=== PATIENT | male | born 1960 | race Caucasian/White ===

== ENCOUNTER → 2016-06-13 | Outpatient (CLI) | payer OTHER, MEDICAID | END | disposition home or self-care (01) | LOC: Rad HDHVI 13:53 | PROVIDERS: ATTEND Internal Medicine Cardiovascular Disease | DX: R00.2 Palpitations (principal); R42 Dizziness and giddiness; Z95.5 Presence of coronary angioplasty implant and graft | CPT/HCPCS: 93306 ==

== ENCOUNTER → 2022-06-27 | Outpatient (CLI) | payer OTHER | END | disposition home or self-care (01) | LOC: Rad HDHVI 15:04 | PROVIDERS: ATTEND Internal Medicine Cardiovascular Disease | DX: I08.1 Rheumatic disorders of both mitral and tricuspid valves (principal); I25.5 Ischemic cardiomyopathy; I10 Essential (primary) hypertension | CPT/HCPCS: 93306 ==

== ENCOUNTER → 2022-06-29 | Outpatient (CLI) | payer OTHER ==
[~2022-06-29] VITALS: Ht 163.8 cm; Wt 72.6 kg
[~2022-06-29] MED LIST: ADENOSINE 61 MG in GIVE UN-DILUTED 0 ML IV ONE; ADENOSINE 90 MG/30 ML INJ IV ONE
== END | disposition home or self-care (01) ==
LOC: Rad HDHVI 08:08
PROVIDERS: ATTEND Internal Medicine Cardiovascular Disease
DX: I25.10 Atherosclerotic heart disease of native coronary artery without angina pectoris (principal); I25.2 Old myocardial infarction; E11.40 Type 2 diabetes mellitus with diabetic neuropathy, unspecified; E11.65 Type 2 diabetes mellitus with hyperglycemia; I10 Essential (primary) hypertension; E78.5 Hyperlipidemia, unspecified; Z82.49 Family history of ischemic heart disease and other diseases of the circulatory system; Z95.1 Presence of aortocoronary bypass graft
CPT/HCPCS: 78452; 93005; 96374; 96375; A9500; J0153

== ENCOUNTER → 2023-01-14 | Outpatient (CLI) | payer OTHER | END | disposition home or self-care (01) | LOC: Rad HDHVI 11:03 | PROVIDERS: ATTEND Internal Medicine Cardiovascular Disease | DX: I07.1 Rheumatic tricuspid insufficiency (principal); I11.9 Hypertensive heart disease without heart failure | CPT/HCPCS: 93306 ==

== ENCOUNTER → 2023-10-02 | Outpatient (CLI) | payer OTHER | END | disposition home or self-care (01) | LOC: Rad HDHVI 13:54 | PROVIDERS: ATTEND Internal Medicine Cardiovascular Disease | DX: I08.1 Rheumatic disorders of both mitral and tricuspid valves (principal); R06.02 Shortness of breath; I10 Essential (primary) hypertension | CPT/HCPCS: 93306 ==

== ENCOUNTER → 2023-10-04 | Outpatient (CLI) | payer OTHER ==
[~2023-10-04] VITALS: Ht 162.6 cm; Wt 72.1 kg
== END | disposition home or self-care (01) ==
LOC: Rad HDHVI 09:05
PROVIDERS: ATTEND Internal Medicine Cardiovascular Disease
DX: I25.10 Atherosclerotic heart disease of native coronary artery without angina pectoris (principal); I25.2 Old myocardial infarction; I11.0 Hypertensive heart disease with heart failure; I50.43 Acute on chronic combined systolic (congestive) and diastolic (congestive) heart failure; E78.00 Pure hypercholesterolemia, unspecified; I25.5 Ischemic cardiomyopathy; Z95.1 Presence of aortocoronary bypass graft; Z82.49 Family history of ischemic heart disease and other diseases of the circulatory system
CPT/HCPCS: 78452; 93005; 96374; 96375; A9500; J0153

== ENCOUNTER → 2023-11-11 | Outpatient (CLI) | payer OTHER ==
[~2023-11-11] MED LIST changes: -ADENOSINE 61 MG in GIVE UN-DILUTED 0 ML IV ONE; -ADENOSINE 90 MG/30 ML INJ IV ONE; +ASPI1TAB20 PO; +ATOR-47 PO; +CHOL20007 PO; +COEN100C37 PO; +DAPA1TAB4 PO; +ERGO2000 PO; +FAMO-12 PO; +MAGN400T40 PO; +MEMA1CAP2 PO; +METO-158 PO; +METO25TA5 PO; +OXYB5TAB14 PO; +PANT40T PO
[2023-11-11 12:06] VITALS: BP 149/71; PULSE 60; RESP 16; O2SAT 96
[2023-11-11 12:17] VITALS: BP 134/89; PULSE 68; RESP 18; O2SAT 96
== END | disposition home or self-care (01) ==
LOC: Rad HDHVI 11:54
PROVIDERS: ATTEND Internal Medicine Cardiovascular Disease
DX: Z01.818 Encounter for other preprocedural examination (principal)
CPT/HCPCS: 71046; 93005; G0463

== ENCOUNTER → 2023-11-14 | Day surgery (SDC) | payer OTHER, MEDICAID ==
[2023-11-11 13:00] LABS: Basophils # (auto) 0 10 ^3/uL (0-0.2); Eosinophils # (auto) 0.1 10 ^3/uL (0-0.8); Neutrophils # (auto) 4.8 10 ^3/uL (1.6-8.6); Platelet Count (auto) 220 10^3/uL (140-450); Red Cell Distribution Width 15.1 % (11.8-14.3)
[2023-11-11 13:03] LABS: Basophils % (auto) 0.3 % (0.0-2.0); Hematocrit 44.5 % (41.0-53.0); Hemoglobin 14.8 g/dL (13.5-17.5); Lymphocytes # (auto) 1.5 10 ^3/uL (0.4-5.4); Lymphocytes % (auto) 21.5 % (10.0-50.0); Mean Corpuscular Hemoglobin 26.7 pg (28.0-32.0); Mean Corpuscular Hgb Conc. 33.2 g/dL (32.0-36.0); Mean Corpuscular Volume 80.2 fL (80.0-100.0); Monocytes # (auto) 0.5 10 ^3/uL (0-1.3); Neutrophils % (auto) 69.2 % (37.0-80.0); Red Blood Cells 5.55 10^6/uL (4.5-5.90); White Blood Cell 6.9 10^3/uL (4.4-10.8)
[2023-11-11 13:16] LABS: INR 0.98 (0.9-1.15); Partial Thromboplastin Time 24.7 SEC (24.5-34.5); Prothrombin Time 10.4 sec (9.3-11.8)
[2023-11-11 14:00] LABS: Anion Gap 4 (5-15); Carbon Dioxide 28 mmol/L (20-30); Chloride 107 mmol/L (98-107); Potassium 4.3 mmol/L (3.5-5.1); Sodium 139 mmol/L (136-145)
[2023-11-11 14:01] LABS: Calcium 9.5 mg/dL (8.7-10.4)
[2023-11-11 14:05] LABS: Glucose 131 mg/dL (74-106)
[2023-11-11 14:06] LABS: BUN/Creatinine Ratio 9.8 (10.0-20.0); Blood Urea Nitrogen 10 mg/dL (9-23)
[~2023-11-14] VITALS: Ht 162.6 cm; Wt 72.1 kg
[~2023-11-14] MED LIST changes: +ANGIOMAX 250 MG VIAL IV ONE; +CLOP75TA28 PO; +CLOPIDOGREL BISULFATE 75 MG TAB ONE; +HEPARIN IN NS 1000Units/500mL 1,500 ML ONE; +IOHEXOL 350 MG/ML 100ML IJ ONE; +LIDOCAINE 2%HCL (LOCAL ANESTH.) INJ 20ML MDV ONE; +MIDAZOLAM HCL 2MG/2ML 2ml VIAL (1mg/ml) ONE; +SODIUM CHL 0.9% 50 ML ONE; +fentaNYL CITRATE 100 MCG/2 ML VL ONE
== END | disposition home or self-care (01) ==
LOC: CATH 07:37
PROVIDERS: ATTEND Internal Medicine Cardiovascular Disease
DX: R06.02 Shortness of breath (principal); I25.810 Atherosclerosis of coronary artery bypass graft(s) without angina pectoris; I71.21 Aneurysm of the ascending aorta, without rupture; I10 Essential (primary) hypertension; Z95.1 Presence of aortocoronary bypass graft; Z79.82 Long term (current) use of aspirin; Z79.899 Other long term (current) drug therapy; Z79.01 Long term (current) use of anticoagulants
CPT/HCPCS: 36415; 80048; 85025; 85610; 85730; 92972; 93459; C1760; C1761; C1769; C1874; C1887; C1894; C9602; C9603; J0583; J1644; J2250; J3010; Q9967; 36221; 99152; 99153; C9600; C9601

== ENCOUNTER → 2023-12-13 | Outpatient (CLI) | payer OTHER ==
[~2023-12-13] MED LIST changes: -ANGIOMAX 250 MG VIAL IV ONE; -CLOPIDOGREL BISULFATE 75 MG TAB ONE; -HEPARIN IN NS 1000Units/500mL 1,500 ML ONE; -IOHEXOL 350 MG/ML 100ML IJ ONE; -LIDOCAINE 2%HCL (LOCAL ANESTH.) INJ 20ML MDV ONE; -MIDAZOLAM HCL 2MG/2ML 2ml VIAL (1mg/ml) ONE; -SODIUM CHL 0.9% 50 ML ONE; -fentaNYL CITRATE 100 MCG/2 ML VL ONE
== END | disposition home or self-care (01) ==
LOC: Rad HDHVI 15:51
PROVIDERS: ATTEND Internal Medicine Cardiovascular Disease
DX: I10 Essential (primary) hypertension (principal); I25.2 Old myocardial infarction
CPT/HCPCS: 93306

== ENCOUNTER 2024-08-19 11:40 | Outpatient (CLI) | payer OTHER, MEDICAID ==
[2024-08-19 11:58] VITALS: BP 137/82; PULSE 59; RESP 16; O2SAT 96
[2024-08-19] MEDS ORDERED: VERI2.5T PO (12:17)
[2024-08-19 12:19] VITALS: BP 122/69; PULSE 52; RESP 16; O2SAT 96
--- NOTE | 2024-08-19 13:07 | DVH ---
EXAM: XY CHEST TWO VIEWS ROUTINE CLINICAL HISTORY: Pain COMPARISON: XY CHEST TWO VIEWS ROUTINE on DOS: 11/11/23 TECHNIQUE: Frontal and lateral view of the chest was obtained FINDINGS: Lines and Tubes: None Lungs: No focal consolidation. Pleura: No effusion. No pneumothorax. Cardiomediastinal contours: Unremarkable Bones: No acute osseous abnormality. IMPRESSION: No acute cardiopulmonary disease.
[2024-08-19] MEDS ORDERED: DONE1TAB88 PO (13:20)
[2024-08-19] MEDS ORDERED: ERGO500086 PO (13:20)
[2024-08-19] MEDS ORDERED: MEMA1TAB3 PO (13:20)
== END 2024-08-19 17:00 | disposition home or self-care (01) ==
LOC: Rad HDHVI 11:40
PROVIDERS: ATTEND Internal Medicine Cardiovascular Disease
DX: Z01.818 Encounter for other preprocedural examination (principal); R07.89 Other chest pain
CPT/HCPCS: 71046; 93005; G0463

== ENCOUNTER 2024-08-20 07:00 | Day surgery (SDC) | payer OTHER, MEDICAID ==
[2024-08-19 14:02] LABS: Basophils # (auto) 0 10 ^3/uL (0-0.2); Basophils % (auto) 0.3 % (0.0-2.0); Eosinophils # (auto) 0.1 10 ^3/uL (0-0.8); Eosinophils % (auto) 1.9 % (0.0-7.0); Hematocrit 47.1 % (41.0-53.0); Lymphocytes # (auto) 1.7 10 ^3/uL (0.4-5.4); Lymphocytes % (auto) 26.1 % (10.0-50.0); Mean Corpuscular Hemoglobin 24.2 pg (28.0-32.0); Mean Corpuscular Hgb Conc. 31.8 g/dL (32.0-36.0); Mean Corpuscular Volume 76.2 fL (80.0-100.0); Monocytes # (auto) 0.5 10 ^3/uL (0-1.3); Monocytes % (auto) 8.1 % (0.0-12.0); Neutrophils # (auto) 4.2 10 ^3/uL (1.6-8.6); Neutrophils % (auto) 63.6 % (37.0-80.0); Platelet Count (auto) 222 10^3/uL (140-450); Red Blood Cells 6.18 10^6/uL (4.5-5.90); Red Cell Distribution Width 15.9 % (11.8-14.3); White Blood Cell 6.5 10^3/uL (4.4-10.8)
[2024-08-19 14:08] LABS: Chloride 104 mmol/L (98-107); Potassium 4.9 mmol/L (3.5-5.1); Sodium 140 mmol/L (136-145)
[2024-08-19 14:09] LABS: Anion Gap 7 (5-15); Calcium 10.4 mg/dL (8.7-10.4); Carbon Dioxide 29 mmol/L (20-31)
[2024-08-19 14:14] LABS: BUN/Creatinine Ratio 9.3 (10.0-20.0); Blood Urea Nitrogen 10 mg/dL (9-23); Glucose 96 mg/dL (74-106); INR 0.95 (0.9-1.15); Partial Thromboplastin Time 26.1 SEC (24.5-34.5); Prothrombin Time 10.1 sec (9.3-11.8)
[~2024-08-20] VITALS: Ht 162.6 cm; Wt 72.6 kg
[~2024-08-20 07:00] MED LIST changes: +DONE1TAB88 PO; +ERGO500086 PO; -MEMA1CAP2 PO; +MEMA1TAB3 PO; +VERI2.5T PO
[2024-08-20] MEDS: IODIXANOL 320MG/ML 100ML BTL IV ONE (07:30)
[2024-08-20] MEDS: MIDAZOLAM HCL 2MG/2ML 2ml VIAL (1mg/ml) ONE (08:45)
[2024-08-20] MEDS: fentaNYL CITRATE 100 MCG/2 ML VL ONE (08:45)
[2024-08-20] MEDS: SODIUM CHL 0.9% 0 ML ONE (08:45)
[2024-08-20] MEDS: ANGIOMAX 250 MG VIAL IV ONE (08:45)
[2024-08-20] MEDS: LIDOCAINE 2%HCL (LOCAL ANESTH.) INJ 20ML MDV ONE (08:46)
[2024-08-20 09:30] VITALS: BP 152/82; PULSE 57; RESP 12; O2SAT 99
--- NOTE | 2024-08-20 09:38 | DVHDS ---
DATE OF DISCHARGE: 08/20/2024 DISCHARGE DIAGNOSES: The patient underwent coronary angiography. Angiogram showed saphenous vein graft with a PDA which was occluded, but PDA itself was patent. The right coronary artery was patent. Saphenous vein graft to the diagonal was patent. MURRAY to the LAD was patent. EF was around 45% with mild global hypokinesis. At this time, conservative medical management should be warranted. It is extensive small vessel disease. He may benefit from vasodilation therapy such as Verquvo as well as EECP should be considered as well. The patient is stable at the time of discharge. DISPOSITION: Home. ACTIVITY: As instructed. DIET: 2 g sodium diet. Deondre Pina MD SA/MONCHO TID: [id number] RECEIPT: [id number]
[2024-08-20 09:46] VITALS: BP 128/72; PULSE 52; RESP 12; O2SAT 100
--- NOTE | 2024-08-20 09:46 | DVHHP ---
ADMIT DATE: 08/20/2024 HISTORY OF PRESENT ILLNESS: The patient who is 64 years old with history of hyperlipidemia, history of myocardial infarction, history of coronary artery bypass grafting some 3 years ago. He has MURRAY to the LAD, saphenous vein graft to the diagonal, saphenous vein graft to the PDA. The patient is now having increasing symptoms of chest pain, diminished left ventricular ejection fraction, and also some inferior reversibility. Because of the above presentation, it was felt that the patient should undergo coronary angiography. Risks and benefits were explained to the patient. He denies any fever, chills, melena, hematochezia, hematemesis, or hemoptysis. No history of CVA. No history of seizure disorder. No movement disorders. Denies any GI symptomatology such as inflammatory bowel disease, irritable bowel syndrome. However, he is having some exertional shortness of breath and because of the above presentation, we elected to do a coronary angiography. Risks and benefits were explained to the patient. PHYSICAL EXAMINATION: VITAL SIGNS: Blood pressure is 140/50, pulse 60 and regular, O2 saturation 96% on room air. HEENT: Pupils are reactive. Funduscopic exam shows no AV nicking, no exudates, no papilledema. Sclerae anicteric. Extraocular muscles are intact. No JVD appreciated. Carotid pulses are 2+ symmetrical. Normal upstroke and contour. No cervical adenopathy. No supraclavicular adenopathy. Oral mucosa moist. Posterior pharynx without any exudates. No nuchal rigidity appreciated. PULMONARY: Clear to auscultation. Tympanic to percussion. CARDIOVASCULAR: Regular rate without S3, without S4. PMI is not displaced. No murmurs. No clicks appreciated. ABDOMEN: Soft. Normal bowel sounds. Stool guaiac is negative. No epigastric tenderness. No suprapubic tenderness. No CVA tenderness. Liver approximately 5 cm by percussion. NEUROLOGIC: The patient is intact. DTRs are 2+ symmetrical. Cranial nerves 2-12 are within normal limits. Sensory motor modalities are intact. EXTREMITIES: Pulses are 2+ symmetrical. LABORATORY DATA: Chest x-ray does not show any acute changes other than sternotomy and cardiomegaly. EKG shows sinus bradycardia, otherwise unremarkable. ASSESSMENT AND PLAN: Thus, the patient with coronary artery disease now with diminished left ventricular ejection fraction and THE patient with inferior wall abnormality on stress Cardiolite, now to undergo coronary angiography to define coronary anatomy. Deondre Pina MD SA/JULIANNE/GUILLERMO TID: [id number] RECEIPT: [id number]
[2024-08-20 10:16] VITALS: BP 117/70; PULSE 50; RESP 12; O2SAT 100
--- NOTE | 2024-08-20 10:34 | DVHOP ---
DATE OF SURGERY: 08/20/2024 PROCEDURES PERFORMED: * Selective left and right coronary angiography. * Ventriculogram. * Angiography of the saphenous vein graft to the PDA and saphenous vein graft to the diagonal. * Angiography of the left subclavian as well as the left internal mammary artery. * Conscious sedation. DESCRIPTION OF PROCEDURE: The patient was prepped and draped in a sterile condition. 1% Xylocaine was used to anesthetize the right groin. Using Cook needle, right femoral artery was engaged. Using Seldinger technique, a 6-Mauritian sheath was placed in the right femoral artery. Using a 6-Mauritian JL4 catheter and a 6-Mauritian JR4 catheter, selective left and right coronary angiography was performed. Using a 6-Mauritian JR4 catheter, angiography of the left subclavian and left internal mammary artery was performed. Using a 6-Mauritian Pigtail catheter, ventriculogram was done. There were no complications. The patient tolerated the procedure well. RESULTS: * Left vein was patent. * Left anterior descending artery had 95% narrowing proximally. * MURRAY to the LAD was patent. * First diagonal of the LAD had a 95% narrowing. * Saphenous vein graft to the diagonal was patent. * Circumflex artery nondominant vessel mild diffuse disease without any flow restrictive lesion. * Right coronary artery was patent. However, distal posterior marginal branch had about a 50% narrowing, but it is a small caliber vessel measuring less than 1.5 mm in diameter. * Saphenous vein graft of the PDA was occluded. * Left ventricular function was preserved with an estimated EF of around 45% with an LVEDP of 20 mmHg with left ventricular systolic pressure of 130. No gradient across the aortic valve. CONCLUSION: Thus, the patient's saphenous vein graft to the PDA was occluded, but the PDA itself was patent. The right coronary artery was patent. The patient had posterior marginal branch which had about a 50% narrowing with a small caliber vessel less than 2 mm in size. I do not believe any intervention is warranted because even if we intervene, there is a high risk for occlusion. Medical management would be the best option. MURRAY to the LAD was patent. Saphenous vein graft to the first diagonal was patent as well. The patient's aortic anatomy, however, was very, very acute and the left subclavian was actually originating almost in the descending portion of the aorta. Furthermore, the patient also has bradycardia as well that needs to be monitored closely. The patient's heart rate was down in the 48 range during the angiography. Deondre Pina MD SA/EJ/ISABEL TID: [id number] RECEIPT: [id number]
[2024-08-20 11:16] VITALS: BP 123/73; PULSE 51; RESP 12; O2SAT 100
== END 2024-08-20 11:33 | disposition home or self-care (01) ==
LOC: CATH 07:00
PROVIDERS: ATTEND Internal Medicine Cardiovascular Disease
DX: I25.810 Atherosclerosis of coronary artery bypass graft(s) without angina pectoris (principal); I25.2 Old myocardial infarction; I11.0 Hypertensive heart disease with heart failure; I50.20 Unspecified systolic (congestive) heart failure; R00.1 Bradycardia, unspecified; R07.9 Chest pain, unspecified; E78.5 Hyperlipidemia, unspecified; Z79.82 Long term (current) use of aspirin; Z79.899 Other long term (current) drug therapy; Z95.1 Presence of aortocoronary bypass graft
CPT/HCPCS: 36415; 80048; 85025; 85610; 85730; 93459; C1760; C1769; C1894; J1644; J2250; J3010; J7030; Q9967; 99152; 99153

== ENCOUNTER 2024-09-15 13:16 | Outpatient (CLI) | payer OTHER, MEDICAID | END 2024-09-15 17:00 | disposition home or self-care (01) | LOC: Rad HDHVI 13:16 | PROVIDERS: ATTEND Internal Medicine Cardiovascular Disease | DX: I34.0 Nonrheumatic mitral (valve) insufficiency (principal); I51.89 Other ill-defined heart diseases | CPT/HCPCS: 93306 ==